=== PATIENT | female | born 1975 | race Caucasian/White ===

== ENCOUNTER 2016-07-19 20:06 | Emergency (ER) | payer OTHER ==
--- NOTE | ~2016-07-19 | CT52 ---
[facility] A Service of [facility] RADIOLOGY TEXT RESULTS PATIENT: DORI PARHAM LOCATION: SED : 77 UNIT #: [id number] AGE: [address]: Cecilia Gr APRN SEX: F ORDER DR: [id number] [address] [address] [id number] E MR#: [id number] Acc #: [id number] NAME: DORI PARHAM : 1975 SEX: F STUDY DATE/TIME: 07/19/2016 20:09 UNIT: SED ROOM: STUDY DESCRIPTION: CT Cervical Spine Wo Cont Attending Physician: Cecilia Gr A.P.R.N. Ordering Physician: Cecilia Gr A.P.R.N. Primary Care Physician: Primary Care Physician No MEDICAL IMAGING REPORT This report is preliminary unless electronic signature is present. EXAM CT cervical spine without contrast, 07/19/2016 HISTORY Neck pain for [address] exam was performed with one or more of the following radiation dose reduction techniques: automatic exposure control, adjustment of mA and/or kV according to patient size, and iterative reconstruction. FINDINGS CT cervical spine without contrast demonstrates satisfactory cervical alignment. Small posterior marginal osteophytes and associated mild diffuse posterior degenerative disc bulging at C4-5. There is also mild diffuse degenerative disc bulging at C5-6, greater to the right of midline. No bony central canal stenosis or bony outlet foraminal stenosis. No fracture or subluxation. No precervical soft tissue swelling. IMPRESSION 1. No acute finding. No fracture. 2. Satisfactory cervical alignment. 3. Mild broad-based degenerative disc bulging at C4-5 and mild disc bulging at C5-6, greater to the right of midline at C5-6. 4. No precervical soft tissue swelling. Dictated by... Mikel Caceres M.D. [facility] A Service [facility] RADIOLOGY TEXT RESULTS PATIENT: DORI PARHAM LOCATION: SED : 77 UNIT #: [id number] AGE: [address]: Cecilia Gr APRN SEX: F ORDER DR: THIS IS AN ELECTRONICALLY VERIFIED REPORT Mikelmary lou Caceres M.D. at 07/20/2016 2:47 PM ANTON/xavier TD: 07/19/2016 23:56 JOB #: [id number] MEDICAL IMAGING REPORT Page 1 of 1
[~2016-07-19 20:06] MED LIST: DICLOFENAC; EFFEXOR; LISINOPRIL; LOPID600 MG; NAPROXEN; PREDNISONE; ROBAXIN
== END 2016-07-19 21:56 | disposition home or self-care (01) ==
LOC: SED 20:06
DX: M54.12 Radiculopathy, cervical region (principal); Z90.710 Acquired absence of both cervix and uterus; F17.200 Nicotine dependence, unspecified, uncomplicated; Z91.041 Radiographic dye allergy status
CPT/HCPCS: 72125; 96372; 99284; J3360